=== PATIENT | female | born 1995 | race Caucasian/White ===

== ENCOUNTER 2017-10-24 12:18 | Emergency (ER) | payer MEDICAID ==
[2017-10-24] MEDS: KETOROLAC 60 MG INJ IM (15:41)
== END 2017-10-24 16:30 | disposition home or self-care (01) ==
LOC: FTE 12:18
DX: K08.89 Other specified disorders of teeth and supporting structures (principal)
CPT/HCPCS: 96372; 99284-25

== ENCOUNTER 2017-10-26 08:55 | Emergency (ER) | payer MEDICAID ==
[2017-10-26] MEDS: SODIUM CHLORIDE 0.9% 1L BAG IV* (09:30)
[2017-10-26] MEDS: ACETAMINOPHEN 325 MG TAB PO (09:31)
[2017-10-26] MEDS: PIPER-TAZO 3.375 GM IV (PMX) 50 ML IVPB (09:31)
[2017-10-26] MEDS: morphine 4 MG/ML VIAL IV (09:31)
[2017-10-26] MEDS: ONDANSETRON 4 MG INJ IV (09:31)
[2017-10-26 09:56] LABS: ADD MAN DIFF? NO
[2017-10-26 10:07] LABS: WHITE BLOOD COUNT 6.6 10^3/ul (4.8-10.8)
[2017-10-26 10:07] LABS: BASOPHILS % 0.5 % (0.0-2.0); EOSINOPHILS % 0.2 % (0.0-7.0); HEMATOCRIT 42.8 % (37.0-47.0); HEMOGLOBIN 14.4 g/dl (12.0-16.0); LYMPHOCYTES % 14.8 % (15.0-51.0); MEAN CORPUSCULAR HEMOGLOBIN 28.2 pg (29.0-33.0); MEAN CORPUSCULAR HGB CONC 33.6 g/dl (32.0-37.0); MEAN CORPUSCULAR VOLUME 83.9 fl (82.0-101.0); MONOCYTE # 0.5 10^3/ul (0.3-0.9); NEUTROPHIL # 5.1 10^3/ul (1.6-7.5); NEUTROPHILS % 77.2 % (39.0-77.0); PLATELET COUNT 245 10^3/UL (140-415); RED CELL DISTRIBUTION WIDTH 13.7 % (11.5-14.5)
[2017-10-26 10:14] LABS: ADD UMIC YES; UR ASCORBIC ACID NEGATIVE (NEGATIVE); UR BACTERIA FEW /HPF (NONE SEEN); UR BILIRUBIN (Dip) NEGATIVE (NEGATIVE); UR BLOOD (Dip) NEGATIVE (NEGATIVE); UR CLARITY SLIGHTLY CLOUDY (CLEAR); UR COLOR YELLOW (YELLOW); UR GLUCOSE (Dip) NEGATIVE (NEGATIVE); UR KETONES (Dip) NEGATIVE (NEGATIVE); UR LEUKOCYTE ESTERASE (Dip) TRACE Leu/ul (NEGATIVE); UR NITRITE (Dip) NEGATIVE (NEGATIVE); UR RBC 1 /HPF (0-5); UR SPECIFIC GRAVITY (Dip) 1.016 (1.003-1.030); UR SQUAMOUS EPITHELIAL CELL FEW /HPF (FEW); UR TOTAL PROTEIN (Dip) 1+ mg/dl (NEGATIVE); UR UROBILINOGEN (Dip) 1+ mg/dL (NEGATIVE); UR WBC 9 /HPF (0-5)
[2017-10-26 10:29] LABS: INR 0.97
[2017-10-26 10:30] LABS: PARTIAL THROMBOPLASTIN TIME 33.3 Sec (25.0-35.0)
[2017-10-26 10:32] LABS: LACTIC ACID 1.9 mmol/L (0.5-2.0)
[2017-10-26 10:36] LABS: ALANINE AMINOTRANSFERASE 66 IU/L (13-69); ALBUMIN 4.5 g/dl (3.3-4.9); ALKALINE PHOSPHATASE 94 IU/L (42-121); ANION GAP 18 (8-16); ASPARTATE AMINO TRANSFERASE 58 IU/L (15-46); BILIRUBIN,INDIRECT 0.1 mg/dl (0-1.1); BILIRUBIN,TOTAL 0.1 mg/dl (0.2-1.3); BLOOD UREA NITROGEN 7 mg/dl (7-20); CALCIUM 9.3 mg/dl (8.4-10.2); CARBON DIOXIDE 24 mmol/L (21-31); CHLORIDE 102 mmol/L (97-110); CREATININE 0.62 mg/dl (0.44-1.00); GLUCOSE 131 mg/dl (70-220); POTASSIUM 3.8 mmol/L (3.5-5.1); SODIUM 140 mmol/L (135-144); TOTAL PROTEIN 7.5 g/dl (6.1-8.1)
[2017-10-26 10:45] LABS: TROPONIN-I < 0.012 ng/ml (0.00-0.12)
[2017-10-26] MEDS ORDERED: IOHEXOL 300MG/ML 150 ML BTL (11:12)
[2017-10-26] MEDS ORDERED: SOD CHLORIDE 0.9% 100 ML (11:12)
== END 2017-10-26 12:22 | disposition home or self-care (01) ==
LOC: E/R 08:55
DX: K04.7 Periapical abscess without sinus (principal); R40.2142 Coma scale, eyes open, spontaneous, at arrival to emergency department; R40.2252 Coma scale, best verbal response, oriented, at arrival to emergency department; R40.2362 Coma scale, best motor response, obeys commands, at arrival to emergency department; R22.0 Localized swelling, mass and lump, head
CPT/HCPCS: 36415; 70450; 70486; 80053; 81001; 83605; 84484; 85025; 85610; 85730; 87040; 87086; 93005; 96374; 96375; 99285-25